=== PATIENT | female | born 1945 | race American Indian/Alaskan Native ===

== ENCOUNTER 2016-04-18 08:41 | Outpatient (CLI) | payer MEDICARE ==
--- NOTE | 2016-04-19 08:08 | Vascular Lab Report ---
LOWER EXTREMITY ARTERIAL DUPLEX: REASON FOR EXAM: Peripheral arterial disease. COMMENTS ON THE RIGHT: Triphasic waveforms are seen proximally. Monophasic waveforms are seen distally. No significant velocity gradients are identified. No focal significant plaque is identified. Findings are consistent with abnormal perfusion. Findings are inconclusive with the ability to heal distal wounds. COMMENTS ON THE LEFT: Triphasic waveforms are seen proximally. Biphasic waveforms are seen distally. No flow seen in the posterior tibial artery. No focal significant plaque is identified. Findings are consistent with abnormal perfusion. Findings are consistent with the ability to heal distal wounds. IMPRESSION: RIGHT: Abnormal distal flow without identifiable stenosis.. LEFT:Occluded posterior tibial artery Clinical correlation recommended..
== END 2016-04-18 08:42 | disposition home or self-care (01) ==
LOC: VAS 08:41
PROVIDERS: ATTEND Family Medicine
DX: I73.9 Peripheral vascular disease, unspecified (principal); I74.8 Embolism and thrombosis of other arteries
CPT/HCPCS: 93925

== ENCOUNTER 2016-07-25 08:06 | Outpatient (CLI) | payer MEDICARE ==
[2016-07-25 08:41] LABS: Blood Urea Nitrogen 20 mg/dL (7-17)
[2016-07-25] MEDS ORDERED: NACL ONE (09:01)
--- NOTE | 2016-07-26 09:51 | Cat Scan Report ---
CTA abdomen, pelvis, lower extremities: Peripheral vascular disease. Following IV contrast administration transverse images are obtained in the left chest to the feet with coronal and sagittal 2-D reformatted images and 3-D MIP image. The visualized lung bases are unremarkable. There is a 6.5 cm inferior right renal cyst and a 13 mm cortical cyst on the left. The uterus is lobulated and moderately enlarged. There is colonic diverticulosis but no inflammatory change noted. Significant degenerative changes are present at L5-S1. The suprarenal abdominal aorta is unremarkable except for mural mural atherosclerosis. The SMA, celiac, and single renal arteries are patent. No there is mild focal enlargement of the aorta just above the bifurcation having a maximum dimension of 2.6 cm. The bifurcation is widely patent as are the iliac and common femoral arteries. The bifurcations are patent bilaterally. Right lower extremity: The SFA, popliteal, and common peroneal arteries are widely patent. The anterior tibial artery is the only patent runoff vessel to the foot and is somewhat small in caliber. Left lower extremity: The SFA, popliteal, and common peroneal arteries are widely patent. The posterior tibial artery is occluded at the origin. The SANTY is occluded in its midportion and the peroneal artery is the only continuously patent artery to the ankle. There does appear to be mild reconstitution of the distal SANTY. Impressions: 1. Mild dilatation of the distal aorta. 2. Single vessel runoff below the knee bilaterally. 3. Several nonvascular findings enumerated above.
== END 2016-07-25 08:07 | disposition home or self-care (01) ==
LOC: CT 08:06
PROVIDERS: ATTEND Radiology Diagnostic Radiology
DX: I70.212 Atherosclerosis of native arteries of extremities with intermittent claudication, left leg (principal); I10 Essential (primary) hypertension; N28.1 Cyst of kidney, acquired; N85.2 Hypertrophy of uterus; K57.30 Diverticulosis of large intestine without perforation or abscess without bleeding; M47.897 Other spondylosis, lumbosacral region; I77.819 Aortic ectasia, unspecified site; I74.8 Embolism and thrombosis of other arteries
CPT/HCPCS: 36415; 75635; 82565; 84520; Q9967

== ENCOUNTER 2016-12-26 09:01 | Outpatient (CLI) | payer MEDICARE ==
[2016-12-26 09:40] LABS: Blood Urea Nitrogen 12 mg/dL (7-17)
--- NOTE | 2016-12-26 12:01 | Cat Scan Report ---
CT ABDOMEN PELVIS WITH CONTRAST: HISTORY: abdominal pain, abnormal abdominal imaging. COMPARISON: 09/28/16. TECHNIQUE: Helical CT in 1.25mm intervals following IV contrast. Sagittal and coronal reconstructions. FINDINGS: Lung bases: normal. 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 The right hepatic lobe is unremarkable. Biliary system: Cholecystectomy. No biliary dilatation. Pancreas: normal. Spleen: normal. Kidneys/ureters/bladder: Both kidneys are normal size and position. A 6.5 cm cyst is identified at the inferior pole of the right kidney. A 1 cm cyst is identified at the superior pole of the left kidney. No evidence for renal mass, calculus or hydronephrosis. The ureters and bladder are unremarkable. Adrenal glands: normal. Aorta: Mild calcifications. No aneurysm. Intestines: Mild diverticulosis of the sigmoid colon is noted. No evidence for obstruction or focal inflammation. Appendix: normal. Pelvic viscera: The uterus is mildly enlarged and lobular consistent with fibroid disease. No adnexal cyst or mass. No pelvic fluid. Musculoskeletal: Mild lumbar spondylosis. No fracture or suspicious bony lesion. IMPRESSION: No acute abdominal process is appreciated. Hypoplasia of the left hepatic lobe, congenital. Cholecystectomy. Bilateral simple renal cysts. Sigmoid diverticulosis. Mild uterine fibroid disease.
== END 2016-12-26 09:02 | disposition home or self-care (01) ==
LOC: CT 09:01
PROVIDERS: ATTEND Internal Medicine
DX: D25.0 Submucous leiomyoma of uterus (principal); N28.1 Cyst of kidney, acquired; K57.30 Diverticulosis of large intestine without perforation or abscess without bleeding; N85.2 Hypertrophy of uterus; I70.0 Atherosclerosis of aorta; Q44.7 Other congenital malformations of liver; M47.896 Other spondylosis, lumbar region; R93.5 Abnormal findings on diagnostic imaging of other abdominal regions, including retroperitoneum; Z90.49 Acquired absence of other specified parts of digestive tract
CPT/HCPCS: 36415; 74177; 82565; 84520; Q9967

== ENCOUNTER 2017-02-13 08:28 | Outpatient (CLI) | payer MEDICARE ==
[2017-02-13 10:06] LABS: Albumin 3.8 g/dL (3.9-5); BUN/Creatinine Ratio 15; Blood Urea Nitrogen 12 mg/dL (7-17); Hemolysis Index 5
--- NOTE | 2017-02-13 12:18 | Ultrasound Report ---
ULTRASOUND RENAL BILATERAL HISTORY: Abnormal kidney function. TECHNIQUE: transabdominal ultrasound with color Doppler interrogation. FINDINGS: The right kidney measures 13.3 5.6 x 7.9cm. Right renal cortex: 1.7cm. The left kidney measures 12.2 x 5.0 x 6.0cm. Left renal cortex: 1.8cm. Both kidneys are normal size and cortical echotexture. A 5.9 x 5.6 cm unilocular cyst is noted at the inferior pole of the right kidney. No additional cysts. No nephrolithiasis. There is no evidence of mass or hydronephrosis. The views of the bladder and the region of the ureters appear normal. IMPRESSION: Right renal cyst as described. Otherwise, unremarkable renal ultrasound.
== END 2017-02-13 08:29 | disposition home or self-care (01) ==
LOC: US 08:28
PROVIDERS: ATTEND Internal Medicine Nephrology
DX: N28.1 Cyst of kidney, acquired (principal); I10 Essential (primary) hypertension
CPT/HCPCS: 36415; 76770; 80048; 82040; 82088; 84100; 84244; 84550

== ENCOUNTER 2017-08-13 09:27 | Outpatient (CLI) | payer MEDICARE ==
--- NOTE | 2017-08-13 15:33 | Ultrasound Report ---
Renal ultrasound: Renal cysts. The right renal length measures 11.5 cm. In the inferior pole there is a dominant circumscribed echolucent mass measuring 6.3 cm. In the mid kidney there are 2 masses measuring 1.8 and 1.9 cm respectively. Both of these are seen mainly well circumscribed and hypoechogenic. No calcifications identified. No evidence of hydronephrosis. The echogenicity of the kidney is unremarkable. The left renal length is 11.6 cm. A single circumscribed hypodensity is identified in the mid kidney measuring 1.8 cm. The kidney is not otherwise remarkable. Imaging of the urinary bladder is normal. When compared to the patient's prior exam in February 2017 the dominant mass in the right kidney has not significantly changed. The 2 smaller masses are not described nor was the left renal mass. Impressions: 1. Stable Tanya right renal mass consistent with simple cyst. 2. Bilateral smaller circumscribed masses which most probably also represent simple cysts.
== END 2017-08-13 09:28 | disposition home or self-care (01) ==
LOC: US 09:27
PROVIDERS: ATTEND Internal Medicine Nephrology
DX: N28.1 Cyst of kidney, acquired (principal); I10 Essential (primary) hypertension; H40.9 Unspecified glaucoma; Z90.49 Acquired absence of other specified parts of digestive tract; Z87.891 Personal history of nicotine dependence; Z98.51 Tubal ligation status
CPT/HCPCS: 76770

== ENCOUNTER 2017-09-10 07:05 | Outpatient (CLI) | payer MEDICARE ==
[2017-09-10 07:53] LABS: BUN/Creatinine Ratio 25; Blood Urea Nitrogen 20 mg/dL (7-17); Calcium 9.4 mg/dL (8.4-10.2)
[2017-09-10 07:54] LABS: Albumin 4.1 g/dL (3.9-5); Hemolysis Index 3
[2017-09-10 13:49] LABS: Creatinine,Urine 177.7 mg/dL (0.1-20.0); Microalbumin/Creatinine Ratio 93.4 ug/mg
== END 2017-09-10 07:06 | disposition home or self-care (01) ==
LOC: LAB 07:05
PROVIDERS: ATTEND Internal Medicine Nephrology
DX: N28.1 Cyst of kidney, acquired (principal); I77.9 Disorder of arteries and arterioles, unspecified; I10 Essential (primary) hypertension; Z88.0 Allergy status to penicillin; Z88.8 Allergy status to other drugs, medicaments and biological substances; Z90.49 Acquired absence of other specified parts of digestive tract; Z87.891 Personal history of nicotine dependence; Z98.51 Tubal ligation status
CPT/HCPCS: 36415; 80048; 82040; 82043; 84100; 84550

== ENCOUNTER 2018-02-13 07:52 | Day surgery (SDC) | payer MEDICARE ==
[~2018-02-13 07:52] MED LIST: NACL 0.9% 1000 ML 1,000 ML IV SCH; VANCOMYCIN/NS 1 GM/250 ML 1 GM/250 ML BAG IV NR
[2018-02-13 09:10] LABS: Basophils % (Auto) 0.5 % (0.0-1.8); Eosinophils % (Auto) 0.8 % (0.0-4.3); Hematocrit 36.8 % (30.3-42.9); Hemoglobin 12.1 gm/dl (10.1-14.3); Lymphocytes # (Auto) 1.5 K/mm3 (1.2-5.4); Mean Corpuscular HGB Conc 33 % (30-34); Mean Corpuscular Volume 87 fl (79-97); Monocytes # (Auto) 0.4 K/mm3 (0.0-0.8); Monocytes % (Auto) 7.4 % (0.0-7.3); Platelet Count 216 K/mm3 (140-440); Red Blood Count 4.25 M/mm3 (3.65-5.03)
[2018-02-13 09:23] LABS: BUN/Creatinine Ratio 14; Blood Urea Nitrogen 13 mg/dL (7-17); Calcium 9.5 mg/dL (8.4-10.2); Hemolysis Index 5
[2018-02-13 09:34] LABS: INR 0.86 (0.87-1.13)
[2018-02-13] MEDS ORDERED: HEPARIN/NS 5000 UNIT/500ML(CATH LAB) 1,000 ML IR ONE (09:34)
[2018-02-13] MEDS ORDERED: HEPARIN 10,000 UNITS/10 ML ONE (09:34)
[2018-02-13] MEDS ORDERED: NACL 0.9% 500 ML 0 ML ONE (09:34)
[2018-02-13] MEDS ORDERED: XYLOCAINE 2% INFILTRATI ONE (09:34)
[2018-02-13 09:35] LABS: Partial Thromboplastin Time 26.2 Sec. (24.2-36.6)
[2018-02-13] MEDS: SUBLIMAZE ONE ×4 (10:19→10:50)
[2018-02-13] MEDS: VERSED ONE ×2 (10:19→10:29)
[2018-02-13] MEDS ORDERED: VERSED ONE (10:32)
--- NOTE | 2018-02-13 11:22 | Short Stay Summary ---
Short Stay Documentation Date of service: 02/13/18 - History Principal diagnosis: PVD with claudication right leg H&P: obtained from office - Allergies and Medications Current Medications: Allergies cigarette smoke Allergy (Unverified 11/21/17 08:30) Itching Penicillins Adverse Reaction (Unverified 04/18/16 08:43) Itching,BLISTERS prochlorperazine [From Compazine] Adverse Reaction (Unverified 04/18/16 08:43) PT UNABLE TO MOVE/ FEELS PARALYZED prochlorperazine edisylate [From Compazine] Adverse Reaction (Unverified 04/18/16 08:43) PT UNABLE TO MOVE/ FEELS PARALYZED prochlorperazine maleate [From Compazine] Adverse Reaction (Unverified 04/18/16 08:43) PT UNABLE TO MOVE/ FEELS PARALYZED Home Medications Medication Instructions Recorded Confirmed Last Taken Type Bimatoprost [Lumigan 0.01%] 1 drop OU QPM 09/28/16 02/13/18 02/12/18 History Dorzolamide HCl 1 drop OU BID 09/28/16 02/13/18 Unknown History Latanoprost 0.005% 1 drops OU QPM bottle 10/01/16 02/13/18 Unknown Rx Losartan [Cozaar] 100 mg PO QDAY #30 tablet 10/01/16 02/13/18 02/13/18 06:30 Rx Multivitamin Tab [Multiple Vitamin 1 each PO DAILY tablet 10/01/16 02/13/18 Unknown Rx TAB (Theragran)] Pantoprazole [Protonix TAB] 40 mg PO QDAY tablet 10/01/16 02/13/18 02/11/18 Rx amLODIPine [Norvasc] 10 mg PO QDAY #30 tablet 10/01/16 02/13/18 Unknown Rx Mesalamine [Delzicol] 400 mg PO PRN PRN 02/13/18 02/13/18 Unknown History Active Medications Sodium Chloride (Nacl 0.9% 1000 Ml) 1,000 mls @ 42 mls/hr IV DIRECT DON Last Admin: 02/13/18 09:48 Dose: 42 mls/hr Documented by: - Brief post op/procedure progress note Date of procedure: 02/13/18 Pre-op diagnosis: PVD with claudication right leg Post-op diagnosis: same Procedure: RLE revasc with angioplasty of popliteal artery Anesthesia: local Surgeon: MAKENZIE CRUZ Estimated blood loss: minimal Pathology: none Condition: stable - Disposition Condition at discharge: Good Disposition: [id number] TO HOME OR SELFCARE Short Stay Discharge Plan Activity: advance as tolerated Weight Bearing Status: Weight Bear as Tolerated Diet: regular Wound: keep clean and dry, per your surgeon's advice Follow up with: ARTHUR CARMICHAEL MD [Primary Care Provider] - 7 Days
--- NOTE | 2018-02-13 11:29 | Operative Report ---
Operative Report Operative Report: Exam: Right lower extremity revascularization Clinical indication: Right lower extremity peripheral vascular disease with claudication Date: 02/13/2018 Procedure: Following an explanation of the risks, benefits and alternative; written informed consent was obtained. The patient was brought to the [facility] and placed in supine position on the examination table. Initial ultrasound evaluation of her left groin demonstrated a patent left common femoral artery. The patient's left groin was prepped and draped in the usual sterile fashion. 1% lidocaine was used for anesthesia. Under ultrasound guidance, the left common femoral artery was cannulated using a 7 cm 21-gauge needle. A 0.018 guidewire was advanced centrally. The needle was removed and a micro-sheath placed. The 0.018 guidewire was exchanged for a 0.035 guidewire and the micro-sheath exchange for a 5 Telugu vascular sheath. A 5 Telugu ami flush catheter was advanced through the sheath over the guidewire to the distal abdominal aorta. Angiography was performed. 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 There is 30-40% stenosis involving the left common iliac artery. The right common iliac artery is patent. The bifurcation was crossed using the catheter guidewire and additional angio graphy performed in the right external iliac artery, right superficial femoral artery proximally and distally. This demonstrates minimal atherosclerotic disease involving the right external iliac artery, right common femoral artery, right superficial femoral artery proximally and mid portions. Scattered atherosclerotic disease is present within the distal right superficial femoral artery extending into the right popliteal artery. Severe disease is present within the tibioperoneal trunk with multifocal occlusion of the peroneal artery. The anterior tibial artery and posterior tibial artery are absent. Below the knee, only the diminutive peroneal artery extends to the foot with significant collateral flow. The catheter was exchanged for a vertebral catheter was advanced to the poplitea l artery over the guidewire. The guidewire was exchanged for an 0.018 guidewire. Angioplasty of the popliteal artery and distal superficial femoral artery was performed using a 4 mm drug-coated balloon. Post angioplasty imaging demonstrated a patent SFA and popliteal artery. The guidewire and catheter were withdrawn proximally and the 0.018 guidewire exchanged for a 0.035 guidewire area the sheath was removed and hemostasis achieved in the left groin using an Angio-Seal arterial closure device. A sterile dressing was then applied. The patient tolerated the procedure well. There were no immediate post procedure complications. Conscious sedation was performed under the guidance of radiologic nursing. Continuous cardiopulmonary monitoring was utilized. Impression: 1) Right lower extremity revascularization with angioplasty of the distal SFA and popliteal artery using drug-coated balloon.2) The patient has significant tibial disease with completely occluded anterior tibial and po sterior tibial arteries and multifocal occlusions of the peroneal artery. Collateral flow extends from the calf to the foot.
[2018-02-13 13:09] VITALS: BP 165/88
== END 2018-02-13 13:30 | disposition home or self-care (01) ==
LOC: CATHLABREC 07:52
PROVIDERS: ATTEND Radiology Diagnostic Radiology
DX: I70.212 Atherosclerosis of native arteries of extremities with intermittent claudication, left leg (principal); I10 Essential (primary) hypertension; E78.00 Pure hypercholesterolemia, unspecified; G62.9 Polyneuropathy, unspecified; K50.90 Crohn's disease, unspecified, without complications; Z79.899 Other long term (current) drug therapy; Z79.01 Long term (current) use of anticoagulants; Z88.0 Allergy status to penicillin; Z88.8 Allergy status to other drugs, medicaments and biological substances; Z91.09 Other allergy status, other than to drugs and biological substances; Z98.51 Tubal ligation status; Z90.49 Acquired absence of other specified parts of digestive tract; Z87.891 Personal history of nicotine dependence; Z85.9 Personal history of malignant neoplasm, unspecified; Z98.890 Other specified postprocedural states
CPT/HCPCS: 36415; 37224; 75625; 75716; 80048; 85025; 85610; 85730; 99156; 99157; C1760; C1769; C1887; J1644; J2250; J3010; J3370; J7030; J7040; Q9967

== ENCOUNTER 2018-03-26 08:39 | Outpatient (CLI) | payer MEDICARE ==
[2018-03-26 09:22] LABS: Albumin 4.2 g/dL (3.9-5); BUN/Creatinine Ratio 19; Blood Urea Nitrogen 17 mg/dL (7-17); Calcium 9.5 mg/dL (8.4-10.2); Hemolysis Index 1; Uric Acid 6.2 mg/dL (3.5-7.6)
[2018-03-26 11:58] LABS: Creatinine,Urine 66.2 mg/dL (0.1-20.0); Microalbumin/Creatinine Ratio 89.1 ug/mg
--- NOTE | 2018-03-26 12:04 | Ultrasound Report ---
ULTRASOUND RENAL BILATERAL HISTORY: Renal mass. TECHNIQUE: transabdominal ultrasound with color Doppler interrogation. FINDINGS: Compared to the renal ultrasound dated 08/13/17 and MR abdomen dated 11/21/17. The right kidney measures 15.0 x 5.5 x 5.2cm. Right renal cortex: 2.0cm. The left kidney measures 11.5 x 7.2 x 4.8cm. Left renal cortex: 1.3cm. A 5.0 x 7.1 x 5.9 cm simple-appearing cyst is identified extending from the inferior pole of the right kidney. A 2.0 cm cyst is noted at the superior pole the right kidney. A 1.3 cm cyst is noted in the superior left kidney. No suspicious renal mass, calculus or hydronephrosis is identified. Renal parenchymal echotexture is within normal limits. The bladder is partially empty but unremarkable. IMPRESSION: Bilateral renal cysts as described. No renal mass is demonstrated on ultrasound. No significant change since the previous renal ultrasound and MR abdomen.
== END 2018-03-26 08:40 | disposition home or self-care (01) ==
LOC: US 08:39
PROVIDERS: ATTEND Urology
DX: N28.1 Cyst of kidney, acquired (principal); N28.89 Other specified disorders of kidney and ureter; I10 Essential (primary) hypertension; R06.83 Snoring; Z90.49 Acquired absence of other specified parts of digestive tract
CPT/HCPCS: 36415; 76770; 80048; 82040; 82043; 84100; 84550